=== PATIENT | female | born 1980 | race Caucasian/White ===

== ENCOUNTER 2018-06-13 20:17 | Emergency (ER) | payer OTHER ==
[2018-06-13] MEDS ORDERED: Dexamethasone 10 MG/ML SDV IM ONE (20:44)
[2018-06-13] MEDS ORDERED: Acetaminophen/HYDROcodone 325-5 MG Tab PO ONE (20:50)
--- NOTE | 2018-06-13 20:52 | EDM.PDOC ---
ED HPI GENERAL MEDICAL PROBLEM - General Chief Complaint: ENT Problem Stated Complaint: SORE THROAT RED EYES Time Seen by Provider: 06/13/18 20:30 Source of Information: Reports: Patient History Limitations: Reports: No Limitations - History of Present Illness INITIAL COMMENTS - FREE TEXT/NARRATIVE: 37 y/o female presents to ER with cc sore throat and eye redness for the past 5 days. She reports when she get up her eyes are matted shut. She denies fever or chills. She reports having a sore throat, no cough. She states it hurts to drink water. She went to her PCP yesterday and was told she had allergic conjunctivitis and was given Erythromycin eye ointment. She reports her eyes feel worse and burn now. She denies any blurred vision. She is accompanied by her spouse and son. Onset Date: 06/01/18 Onset Time: 12:00 Duration: Getting Worse Location: Reports: Other (eyes and throat) Quality: Reports: Ache Severity: Mild Improves with: Reports: None Worsens with: Reports: None Associated Symptoms: Reports: Cough. 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 Throat Pain Score (Numeric/FACES): 7 - Related Data Allergies Allergy/AdvReac Type Severity Reaction Status Date / Time No Known Allergies Allergy Verified 06/13/18 20:32 Home Meds: Home Meds Olopatadine [Patanol 0.1% Ophth Soln] 5 ml .XX TID 7 Days #1 bottle 06/13/18 [Rx ] Past Medical History HEENT History: Reports: None Cardiovascular History: Reports: None Respiratory History: Reports: None Gastrointestinal History: Reports: Cholelithiasis Genitourinary History: Reports: None BUSHER HELPER History: Reports: Endometrial Ablation, Musculoskeletal History: Reports: None Neurological History: Reports: None Psychiatric History: Reports: None Endocrine/Metabolic History: Reports: None Hematologic History: Reports: None Immunologic History: Reports: None Oncologic (Cancer) History: Reports: None Dermatologic History: Reports: None - Infectious Disease History Infectious Disease History: Reports: None - Past Surgical History Head Surgeries/Procedures: Reports: None HEENT Surgical History: Reports: None Cardiovascular Surgical History: Reports: None GI Surgical History: Reports: Appendectomy, Cholecystectomy Female Surgical History: Reports: None Musculoskeletal Surgical History: Reports: Other (See Below) Other Musculoskeletal Surgeries/Procedures:: knee surgery Social & Family History - Family History Family Medical History: Noncontributory Oncologic: Reports: Colon, Uterine - Tobacco Use Smoking Status *Q: Never Smoker - Caffeine Use Caffeine Use: Reports: None - Recreational Drug Use Recreational Drug Use: No ED ROS ENT - Review of Systems Review Of Systems: See Below Constitutional: Denies: Fever, Chills HEENT: Reports: Eye Discharge, Throat Pain, Other (bilateral eye redness) Respiratory: Denies: Shortness of Breath, Cough Cardiovascular: Denies: Chest Pain Endocrine: Reports: No Symptoms GI/Abdominal: Reports: No Symptoms : Reports: No Symptoms Musculoskeletal: Reports: No Symptoms Skin: Reports: No Symptoms Neurological: Reports: No Symptoms Psychiatric: Reports: No Symptoms Hematologic/Lymphatic: Reports: No Symptoms Immunologic: Reports: No Symptoms ED EXAM, ENT - Physical Exam Exam: See Below Exam Limited By: No Limitations General Appearance: Alert, WD/WN, No Apparent Distress Eye Exam: Bilateral Eye: EOMI, PERRL, Other (bilateral conjunctivitis noted) Ears: Normal External Exam, Normal Canal, Hearing Grossly Normal, Normal TMs Nose: Normal Inspection, Normal Mucousa, No Blood Mouth/Throat: Normal Inspection, Normal Gums, Normal Lips, Normal Oropharynx, Normal Teeth, Uvular Edema Neck: Normal Inspection, Supple, Non-Tender, Full Range of Motion Respiratory/Chest: No Respiratory Distress, Lungs Clear, Normal Breath Sounds, No Accessory Muscle Use, Chest Non-Tender Cardiovascular: Normal Peripheral Pulses, Regular Rate, Rhythm, No Edema, No Gallop, No JVD, No Murmur, No Rub Back: Normal Inspection, Full Range of Motion Extremities: Normal Inspection, Normal Range of Motion, Non-Tender, No Pedal Edema, Normal Capillary Refill Neurological: Alert, Oriented, CN II-XII Intact, Normal Cognition, Normal Gait, No Motor/Sensory Deficits Psychiatric: Normal Affect, Normal Mood Skin: Warm, Dry, Intact, Normal Color, No Rash Lymphatic: No Adenopathy Course - Vital Signs Last Recorded V/S: Last Vital Signs Temp 98.4 F 06/13/18 20:36 Pulse 94 06/13/18 20:36 Resp 16 06/13/18 20:36 BP 126/76 06/13/18 20:36 Pulse Ox 97 06/13/18 20:36 - Orders/Labs/Meds Orders: Active Orders 24 hr Category Date Time Status CULTURE STREP A CONFIRMATION [RM] Stat Lab 06/13/18 20:39 Results STREP SCRN A RAPID W CULT CONF [RM] Stat Lab 06/13/18 20:39 Results Meds: Medications Discontinued Medications Generic Name Dose Route Start Last Admin Trade Name [place] PRN Reason Stop Dose Admin Hydrocodone Bitart/Acetaminophen 1 tab 06/13/18 20:50 06/13/18 20:58 Blakeslee 325-5 Mg PO 06/13/18 20:51 1 tab ONETIME ONE Administration Dexamethasone 10 mg 06/13/18 20:44 06/13/18 20:59 Dexamethasone IM 06/13/18 20:45 10 mg ONETIME ONE Administration - Re-Assessments/Exams Free Text/Narrative Re-Assessment/Exam: 06/13/18 21:32 Her strep is negative. She states she feels better after receiving Decadron and Blakeslee. I will discharge home with instructions to use a cool mist vaporizer. I feel her conjunctivitis is viral in nature since she got worse after using the Erythromycin ophthalmic ointment. 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 Instructed her to return to the ER for any new or acute worsening symptoms. She verbalized understanding and is comfortable with plan for discharge. Departure - Departure Time of Disposition: 21:34 Disposition: Home, Self-Care 01 Condition: Good Clinical Impression: Pharyngitis Qualifiers: Pharyngitis/tonsillitis etiology: unspecified etiology Qualified Code(s): J02.9 - Acute pharyngitis, unspecified Allergic conjunctivitis Qualifiers: Laterality: bilateral Qualified Code(s): H10.13 - Acute atopic conjunctivitis, bilateral - Discharge Information Prescriptions: Olopatadine [Patanol 0.1% Ophth Soln] 5 ml .XX TID 7 Days #1 bottle Instructions: Allergic Conjunctivitis, Adult, [id number], Viral Respiratory Infection, [id number], Pharyngitis, [id number] Forms: ED Department Discharge - My Orders Last 24 Hours: My Active Orders 06/13/18 20:39 CULTURE STREP A CONFIRMATION [RM] Stat STREP SCRN A RAPID W CULT CONF [RM] Stat - Assessment/Plan Last 24 Hours: My Active Orders 06/13/18 20:39 CULTURE STREP A CONFIRMATION [RM] Stat STREP SCRN A RAPID W CULT CONF [RM] Stat
== END 2018-06-13 21:50 | disposition home or self-care (01) ==
LOC: JD.ED 20:17
DX: J02.9 Acute pharyngitis, unspecified (principal); H10.13 Acute atopic conjunctivitis, bilateral
CPT/HCPCS: 87081; 87430; 96372; 99283; A9270; J1100